=== PATIENT | female | born 2000 | race Two or more races ===

== ENCOUNTER 2023-03-24 16:36 | Emergency (ER) | payer SELFPAY ==
[~2023-03-24] VITALS: Ht 162.6 cm; Wt 73.2 kg
[2023-03-24 18:25] VITALS: BP 118/74
== END 2023-03-24 18:28 | disposition home or self-care (01) ==
LOC: ER 16:36
DX: S80.01XA Contusion of right knee, initial encounter (principal); S80.211A Abrasion, right knee, initial encounter; V89.2XXA Person injured in unspecified motor-vehicle accident, traffic, initial encounter; Y93.89 Activity, other specified; Y92.89 Other specified places as the place of occurrence of the external cause; Y99.8 Other external cause status
CPT/HCPCS: 93971